=== PATIENT | female | born 1990 | race Caucasian/White ===

== ENCOUNTER 2016-04-01 08:00 | Outpatient (RCR) | payer OTHER | END 2016-04-29 | disposition home or self-care (01) | LOC: PTY 08:00 | DX: M25.371 Other instability, right ankle (principal); M67.00 Short Achilles tendon (acquired), unspecified ankle; M76.72 Peroneal tendinitis, left leg; M72.2 Plantar fascial fibromatosis | CPT/HCPCS: 97035; 97110; 97140; G0283 ==

== ENCOUNTER 2017-12-09 07:10 | Outpatient (RCR) | payer BC, OTHER | END 2017-12-27 | disposition home or self-care (01) | LOC: PTY 07:10 | DX: M25.512 Pain in left shoulder (principal) ==

== ENCOUNTER 2017-12-30 07:05 | Outpatient (RCR) | payer BC | END 2018-01-27 | disposition home or self-care (01) | LOC: PTY 07:05 | DX: M25.512 Pain in left shoulder (principal) ==